=== PATIENT | female | born 1950 | race Caucasian/White ===

== ENCOUNTER 2020-11-26 08:41 | Outpatient (CLI) | payer MEDICARE, BC | END 2020-11-26 08:42 | disposition home or self-care (01) | LOC: CSHMAMMO 08:41 | PROVIDERS: ATTEND Nurse Practitioner Family | DX: Z12.31 Encounter for screening mammogram for malignant neoplasm of breast (principal); Z13.820 Encounter for screening for osteoporosis; Z78.0 Asymptomatic menopausal state | CPT/HCPCS: 77063; 77067; 77080 ==

== ENCOUNTER 2023-11-28 13:10 | Outpatient (CLI) | payer MEDICARE | END 2023-11-28 13:11 | disposition home or self-care (01) | LOC: CSHMRI 13:10 | PROVIDERS: ATTEND Family Medicine | DX: R41.3 Other amnesia (principal) | CPT/HCPCS: 70551 ==

== ENCOUNTER 2024-04-21 12:46 | Outpatient (CLI) | payer MEDICARE | END 2024-04-21 12:47 | disposition home or self-care (01) | LOC: CSHCT 12:46 | PROVIDERS: ATTEND Psychiatry & Neurology Neurology | DX: R41.3 Other amnesia (principal); G93.89 Other specified disorders of brain | CPT/HCPCS: 70450 ==

== ENCOUNTER 2025-02-18 09:27 | Outpatient (CLI) | payer MEDICARE | END 2025-02-18 09:28 | disposition home or self-care (01) | LOC: CSHCT 09:27 | PROVIDERS: ATTEND Internal Medicine | DX: Z12.2 Encounter for screening for malignant neoplasm of respiratory organs (principal); F17.218 Nicotine dependence, cigarettes, with other nicotine-induced disorders; J44.9 Chronic obstructive pulmonary disease, unspecified; R91.1 Solitary pulmonary nodule; J98.4 Other disorders of lung | CPT/HCPCS: 71271; 94060; 94618; 94664; 94726; 94729 ==